=== PATIENT | female | born 1935 | race Caucasian/White ===

== ENCOUNTER 2018-07-29 12:07 | Observation (INO) | payer MEDICARE ==
[2018-07-29] VITALS (7 sets, daily range): BP systolic 105–163; BP diastolic 43–69; Ht 167.6 cm; Wt 63.2 kg
[~2018-07-29] VITALS: Ht 167.6 cm; Wt 63.2 kg
[2018-07-29 12:36] LABS: BASOPHILS 0.1 % (0-2); EOSINOPHILS 0.2 % (0-7); HEMATOCRIT 36.7 % (36.0-48.0); HEMOGLOBIN 12.1 g/dL (12-16); IMMATURE GRANULOCYTES 0.3 % (0-5); LYMPHOCYTES 6.1 % (15-50); MCH 32.9 pg (26.0-34.0); MCV 99.7 fL (80.0-100.0); MEAN PLATELET VOLUME 11.5 fL (7.4-10.4); MONOCYTES 2.1 % (2-11); NEUTROPHILS 91.2 % (40-80); PLATELET COUNT 185 10x3/uL (130-400); RBC 3.68 10x6/uL (4.00-5.40); RDW 13.1 % (11.5-14.5); WBC 15.3 10x3/uL (4.8-10.8)
[2018-07-29 12:49] LABS: ALBUMIN 3.5 g/dL (3.4-5.0); ALKALINE PHOSPHATASE 67 U/L (46-116); ALT (SGPT) 16 U/L (10-68); BILIRUBIN - TOTAL 0.45 mg/dL (0.2-1.3); CALC OSMOLALITY 284 mosm/kg (275-300); CALCIUM 8.8 mg/dL (8.5-10.1); CARBON DIOXIDE 26.5 mmol/L (21.0-32.0); CHLORIDE - SERUM 107 mmol/L (98-107); GLUCOSE 128 mg/dL (74-106); POTASSIUM - SERUM 3.7 mmol/L (3.5-5.1); PROTEIN - SERUM 6.9 g/dL (6.4-8.2); SODIUM 141 mmol/L (136-145); UREA NITROGEN 18 mg/dL (7-18); eGFR NON AFRICAN AMERICAN 56 mL/min (90-120)
[2018-07-29 12:50] LABS: APTT 26.8 SECONDS (22.8-39.4); INR 1.05 (0.85-1.17); PROTIME 13.2 SECONDS (11.6-15.0)
[2018-07-29 13:09] LABS: AMYLASE - SERUM 68 U/L (25-115); CKMB 1.3 U/L (0.0-3.6); CREATINE KINASE 56 UL (21-215); LIPASE 103 U/L (73-393)
[2018-07-29 13:10] LABS: TROPONIN-I < 0.017 ng/mL (0.000-0.060)
[2018-07-29 19:03] LABS: CKMB 0.8 U/L (0.0-3.6); CREATINE KINASE 44 UL (21-215); TROPONIN-I < 0.017 ng/mL (0.000-0.060)
[2018-07-29] MEDS ORDERED: IBUPROFEN200 MG PO (20:46)
[2018-07-30 03:53] VITALS: BP 114/47
[2018-07-30 05:21] LABS: BASOPHILS 0.2 % (0-2); EOSINOPHILS 0.1 % (0-7); HEMATOCRIT 33.7 % (36.0-48.0); HEMOGLOBIN 11.1 g/dL (12-16); IMMATURE GRANULOCYTES 0.2 % (0-5); LYMPHOCYTES 13.7 % (15-50); MCH 32.6 pg (26.0-34.0); MCHC 32.9 g/dL (31.0-37.0); MCV 99.1 fL (80.0-100.0); MEAN PLATELET VOLUME 11.7 fL (7.4-10.4); MONOCYTES 8.8 % (2-11); PLATELET COUNT 171 10x3/uL (130-400); RDW 13.4 % (11.5-14.5)
[2018-07-30 05:29] LABS: WBC 10.8 10x3/uL (4.8-10.8)
[2018-07-30 05:54] LABS: ALBUMIN 3.1 g/dL (3.4-5.0); ALKALINE PHOSPHATASE 51 U/L (46-116); ALT (SGPT) 12 U/L (10-68); BILIRUBIN - TOTAL 0.88 mg/dL (0.2-1.3); CALC OSMOLALITY 284 mosm/kg (275-300); CALCIUM 8.6 mg/dL (8.5-10.1); CARBON DIOXIDE 24.9 mmol/L (21.0-32.0); CHLORIDE - SERUM 107 mmol/L (98-107); CKMB 0.4 U/L (0.0-3.6); CREATINE KINASE 32 UL (21-215); CREATININE - SERUM 0.9 mg/dL (0.6-1.3); GLUCOSE 97 mg/dL (74-106); LIPASE 52 U/L (73-393); POTASSIUM - SERUM 4.1 mmol/L (3.5-5.1); PROTEIN - SERUM 6.2 g/dL (6.4-8.2); SODIUM 142 mmol/L (136-145); TROPONIN-I < 0.017 ng/mL (0.000-0.060); UREA NITROGEN 19 mg/dL (7-18); eGFR NON AFRICAN AMERICAN 64 mL/min (90-120)
[2018-07-30 05:55] LABS: AMYLASE - SERUM 47 U/L (25-115)
[2018-07-30 08:20] VITALS: BP 120/54
--- NOTE | 2018-07-30 14:38 | HP ---
PATIENT: KEV MICHELLE MEDICAL RECORD: [id number] ACCOUNT: [id number] LOCATION:[address] : 37 ADMISSION DATE: 07/29/18 PCP: No PCP HISTORY AND PHYSICAL EXAMINATION DATE OF ADMISSION: 07/29/2018. CHIEF COMPLAINT: Chest pain. HISTORY OF PRESENT ILLNESS: This is an 82-year-old white female who does not have a primary care physician. She states she has seen one since near the of her youngest child who is 52 years old. She has had some reflux problems in the past. This morning, she was eating breakfast that included some alvarado and she felt like she choked when she ate this alvarado. She started having chest pain radiating all the way through to her back started about 9:00 a.m. this morning. She had a little vomiting, no diaphoresis, no radiation of symptoms up out to either arm. She has no history of heart trouble. Her youngest child told her she was going into the ER. There, her white count was 15,000. Rest of her lab was normal. CT done of the chest, abdomen and pelvis showed findings consistent with esophagitis and a large hiatal hernia. There was mucosal thickening in the distal esophagus. She is admitted for further evaluation of her chest pain. PAST MEDICAL HISTORY: She has had a few arthritic aches and pains. PAST SURGICAL HISTORY: She had a . She has 6 children total. She had an appendectomy when she was 16. CURRENT MEDICATIONS: None. ALLERGIES: None. HABITS: She does smoke a couple of cigarettes a day. Denies alcohol or drug use. SOCIAL HISTORY: , lives with her . She is retired. FAMILY HISTORY: Noncontributory. REVIEW OF SYSTEMS: GENERAL: No major weight changes. HEENT: No particular sinus or allergy problems. RESPIRATORY: No history of asthma, emphysema, or pneumonia. CARDIAC: No history of chest pain or heart trouble. GASTROINTESTINAL: She has had some heartburn. GENITOURINARY: No significant problems there. MUSCULOSKELETAL: Few arthritic aches and pains. NEUROLOGIC: No migraines or seizures. PSYCHIATRIC: Denies depression or melancholia. PHYSICAL EXAMINATION: VITAL SIGNS: Temperature 97.9, pulse 84, respirations 15, blood pressure is 163/69, O2 sats 98%. GENERAL: She is lying in the Emergency Department, no acute distress. Two daughters in the room. SKIN: Warm and dry. HISTORY AND PHYSICAL [id number] KEV MICHELLE: Grossly within normal limits. NECK: Supple. No JVD. HEART: Regular rate and rhythm. There is a II/ systolic murmur. LUNGS: Clear. ABDOMEN: Soft, nontender. EXTREMITIES: No edema. LABORATORY DATA: CBC with a white count of 15,300, hemoglobin 12.1, hematocrit 36.7. Basic metabolic panel: Sodium 141, potassium 3.7, chloride 107, CO2 of 26.5, BUN 18, creatinine 1.0. Glucose 128, calcium 8.8. Liver functions are normal. INR is 1.05. Amylase and lipase are normal. Troponin is less than 0.017. CT done of the chest, abdomen and pelvis shows heart is normal in size. There is a large hiatal hernia, mucosal thickening of the distal esophagus and air within the esophagus. This may be related to reflux esophagitis, small mediastinal lymph nodes. There are no other remarkable findings in the abdomen and pelvis. ASSESSMENT: 1. Chest pain radiating through to her back. 2. Hiatal hernia. 3. Possible esophagitis. 4. Heart murmur. PLAN: We will admit. Pain control. GI has been consulted and will also get an echocardiogram for her murmur. Other tests or procedures as warranted. TRANSINT:[id number] Voice Confirmation ID: [id number] DOCUMENT ID: [id number] JOSIANE LEVY MD at 1438 CC: [id number] DICTATION DATE: 07/30/18 0002 LACE MENDER: 07/30/18 0207 ADM IN [facility] [address] [id number]
[2018-07-30 15:34] VITALS: BP 122/54
[2018-07-30 21:15] VITALS: BP 131/59
[2018-07-31 01:40] VITALS: BP 124/65
[2018-07-31 04:47] LABS: BASOPHILS 0.3 % (0-2); EOSINOPHILS 0.8 % (0-7); HEMATOCRIT 33.2 % (36.0-48.0); IMMATURE GRANULOCYTES 0.3 % (0-5); LYMPHOCYTES 21.2 % (15-50); MCH 32.5 pg (26.0-34.0); MCHC 33.1 g/dL (31.0-37.0); MCV 98.2 fL (80.0-100.0); MEAN PLATELET VOLUME 11.9 fL (7.4-10.4); MONOCYTES 10.5 % (2-11); NEUTROPHILS 66.9 % (40-80); PLATELET COUNT 149 10x3/uL (130-400); RBC 3.38 10x6/uL (4.00-5.40); RDW 13.2 % (11.5-14.5)
[2018-07-31 04:56] VITALS: BP 128/59
[2018-07-31 04:57] LABS: WBC 7.7 10x3/uL (4.8-10.8)
[2018-07-31 07:29] VITALS: BP 117/52
[2018-07-31 11:48] VITALS: BP 126/56
[2018-07-31] MEDS ORDERED: PROTONIX40 MG PO (14:35)
[2018-07-31] MEDS ORDERED: CARAFATE1 G PO (14:35)
--- NOTE | 2018-08-01 07:22 | MORECARE ---
CASE MANAGEMENT DISCHARGE SUMMARY PATIENT: KEV MAK UNIT: [id number] ADM DATE: 07/29/18 AGE: 82 : 37 SEX: F ROOM/BED: D.2119 AUTHOR: ROBINSON CARREON PHYSICIAN: REFERRING PHYSICIAN: JOSIANE LEVY MD DATE OF SERVICE: 08/01/18 Discharge Plan Patient Name: [facility]EV MAK [facility] [facility] 1935 Planned Disposition: Home Anticipated Discharge Date: 07/31/18 Discharge Date: 07/31/2018 Expected LOS: 2 Initial Reviewer: [email or web address] Initial Review Date: 08/01/2018 Generated: 08/01/18 8:22 am Coverage Notice Reviewer: [email or web address] [place] Notice Issued Date-Time: 07/30/2018 20:09 Notice Type: Medicare Outpatient Observation Notice Notice Delivered To: Patient Relationship to Patient: Self Silk Trimmer Name: Kev Mak Delivery Method: - Dorita Days: Prior Verbal Notification: Recipient Understood Notice: Recipient Signature: Med Rec Note Co-signed by Attending: Coverage Notice Comment: Patient Name: KEV MAK Page [phone] at 0722 All edits/amendments must be made on the electronic document DICTATION DATE: 08/01/18721 RESEARCH LABORATORY SPECIALIST: DANNIELLE 08/01/18721 RPT#: [id number] DC DATE:07/31/18 STATUS: DIS IN [facility] [address] [place] [address] END OF REPORT
--- NOTE | 2018-08-01 10:45 | EC ---
PATIENT:KEV MICHELLE DATE OF SERVICE: 07/29/18 SEX: F MEDICAL RECORD: [id number] DATE OF : 39 LOCATION:D.M2 D.211 AGE OF PATIENT: 82 ADMISSION DATE: 07/29/18 REFERRING PHYSICIAN: INTERPRETING PHYSICIAN: JOHNATHON LOUISE MD ECHOCARDIOGRAM REPORT ECHO CHARGES 4 ECHO COMPLETE Date: 07/30/18 CLINICAL DIAGNOSIS: HEART MURMUR/CHEST PAIN ECHOCARDIOGRAPHIC MEASUREMENTS (adult normal given) AC root (d.<3.7cm) 3.7 cm LV Septum d (<1.2 cm> 1.6 cm Valve Excursion 1.1 cm LV Septum (systole) 1.8 cm Left Atria (s.<4.0cm> 2.8 cm LVPW d(<1.2cm) 1.7 cm RV (d.<2.3cm) 2.7 cm LVPW (sytole) 2.0 cm LV diastole(<5.6CM) 5.4 cm MV E-F(>70mm/sec) cm LV systole 3.9 cm LVOT Diameter 1.7 cm MV exc.(>10mm) 1.3 cm Est.ejection fraction (50-75%) % DOPPLER: LVIT cm/sec A 132 cm/sec E 98.0 cm/sec LA cm/sec RVSP 39 mmHg LVOT 187 cm/sec AOP1/2T 467 m/s Asc. Ao 241 cm/sec RVOT 11 cm/sec RA cm/sec PA 172 cm/sec AV Gradient Peak 23.15mmHg AV Mean 16.36mmHg AV Area 1.5 cm MV Gradient Peak 10.77mmHg MV Mean 4.08 mmHg MV Area cm COMMENTS: Radio Tower Technician: Tila KELLEY Garment Steamer: 1 Dr. Louise TAPE# PACS Pericardial Effusion N DATE OF SERVICE: 07/30/2018 PROCEDURE: Echocardiogram. FINDINGS: 1. Left ventricular chamber size is within normal limits. Left ventricular systolic function is normal. Overall ejection fraction estimated at 60%. 2. Left atrium, right atrium, and right ventricle chamber sizes are within normal limits. 3. Valvular structures have normal structure and motion. ECHOCARDIOGRAM REPORT [id number] KEV MICHELLE 4. Doppler interrogation reveals mild aortic insufficiency, mild mitral regurgitation, mild tricuspid regurgitation, no other valvular insufficiency or stenosis. 5. No evidence of pericardial effusion or left ventricular thrombus. Pulmonary systolic pressure is normal, estimated at 39 mmHg. TRANSINT:[id number] Voice Confirmation ID: [id number] DOCUMENT ID: [id number] JOHNATHON LOUISE MD at 1045 CC: [id number] DICTATION DATE: 07/31/1828 COMMERCIAL REAL ESTATE MANAGER: 07/31/18 1127 DIS IN 07/31/18 [id number] [place] [id number]
== END 2018-07-31 17:06 | disposition home or self-care (01) ==
LOC: D.ER 12:07 → D.M2 16:45 → D.EDHOLD 16:45 → OBSVTIME 16:45 → D.M2 17:33
PROVIDERS: Family Medicine; Internal Medicine Gastroenterology; ADMIT Family Medicine
DX: K22.6 Gastro-esophageal laceration-hemorrhage syndrome (principal); K44.9 Diaphragmatic hernia without obstruction or gangrene; K22.10 Ulcer of esophagus without bleeding; K57.10 Diverticulosis of small intestine without perforation or abscess without bleeding; R01.1 Cardiac murmur, unspecified